=== PATIENT | female | born 1945 | race Caucasian/White ===

== ENCOUNTER → 2017-11-16 | Outpatient (CLI) | payer MEDICAID ==
[~2017-11-16] MED LIST: CALCIUM 500+D1 EAC2 PO; HYDROCODON-ACE1 EAC7 PO
== END ==
LOC: M.RAD 11-09 12:45
DX: Z12.31 Encounter for screening mammogram for malignant neoplasm of breast (principal); M85.89 Other specified disorders of bone density and structure, multiple sites; Z78.0 Asymptomatic menopausal state

== ENCOUNTER → 2021-07-12 | Outpatient (CLI) | payer OTHER, MEDICAID | LOC: EDSEX → M.RAD 06-29 13:42 | PROVIDERS: ATTEND Family Medicine | DX: Z12.31 Encounter for screening mammogram for malignant neoplasm of breast (principal); M85.88 Other specified disorders of bone density and structure, other site; M81.0 Age-related osteoporosis without current pathological fracture ==